=== PATIENT | female | born 1985 | race Caucasian/White ===

== ENCOUNTER 2017-10-29 11:08 | Emergency (ER) | payer MEDICARE, MEDICAID ==
[~2017-10-29] VITALS: Ht 152.4 cm; Wt 63.0 kg
[~2017-10-29 11:08] MED LIST: AMOX500C7 PO; CLON-527 PO; FLUO20CA39 PO; GABA-341 PO; HYDR-569 PO; ONDA8TAB9 PO
[2017-10-29] MEDS ORDERED: famotidine/PF 10 mg/ml inj IV ONE (13:30)
[2017-10-29] MEDS ORDERED: ondansetron/PF 4mg/2ml inj IV ONE (13:30)
[2017-10-29] MEDS ORDERED: normal saline 1000ML IV soln IVB ONE ×2 (13:30)
[2017-10-29 14:05] LABS: BASOPHILS % (AUTO) 0.1 % (0-1); EOSINOPHILS # (AUTO) 0.1 X10'3 (0-0.9); EOSINOPHILS % (AUTO) 1.7 % (0-6); HEMATOCRIT 38.8 % (35.0-45.0); HEMOGLOBIN 13.5 g/dl (12.0-16.0); LYMPHOCYTES # (AUTO) 2.2 X10'3 (1.1-4.8); LYMPHOCYTES % (AUTO) 37.1 % (21-51); MEAN CORPUSCULAR HEMOGLOBIN 32.7 PG (27.0-31.0); MEAN CORPUSCULAR HGB CONC 34.7 % (33.0-36.5); MEAN CORPUSCULAR VOLUME 94.3 FL (78-98); MEAN PLATELET VOLUME 7.6 FL (7.4-10.4); MONOCYTES # (AUTO) 0.4 X10'3 (0-0.9); MONOCYTES % (AUTO) 6.2 % (2-12); NEUTROPHILS # (AUTO) 3.2 X10'3 (1.8-7.7); NEUTROPHILS % (AUTO) 54.9 % (42-75); PLATELET COUNT 244 X10'3 (140-440); RED BLOOD COUNT 4.12 X10'6 (4.20-5.60); WHITE BLOOD COUNT 5.8 X10'3 (4.5-11.0)
[2017-10-29 14:07] LABS: CLARITY,URINE CLEAR (Clear); COLOR,URINE YELLOW (Yellow); GLUCOSE, URINE NEGATIVE (Neg); KETONES,URINE TRACE mg/dl (Neg); LEUKOCYTE ESTERASE ,URINE NEGATIVE (Neg); NITRITES, URINE NEGATIVE (Neg); OCCULT BLOOD,URINE MODERATE (Neg); PROTEIN,URINE TRACE mg/dl (Neg)
[2017-10-29 14:08] LABS: UA COLLECTION TYPE CLN CATCH MIDSTREAM
[2017-10-29 14:11] LABS: HCG SERUM QL NEGATIVE
[2017-10-29 14:14] LABS: ALANINE AMINOTRANSFERASE 22 U/L (12-78); ALBUMIN 3.8 G/DL (3.4-5.0); ALBUMIN/GLOBULIN RATIO 1.3 (1.1-1.5); ALKALINE PHOSPHATASE 81 IU/L (46-116); ANION GAP 11 (8-16); ASPARTATE AMINO TRANSFERASE 16 U/L (10-37); BILIRUBIN,TOTAL 0.7 MG/DL (0.1-1.0); BLOOD UREA NITROGEN 9 MG/DL (7-18); BUN/CREATININE RATIO 13.8 (6.6-38.0); CALCIUM 8.5 MG/DL (8.5-10.1); CHLORIDE 107 MMOL/L (99-107); CREATININE 0.65 MG/DL (0.40-0.90); GLUCOSE 94 MG/DL (70-104); LIPASE < 50 U/L (73-393); POTASSIUM 3.4 MMOL/L (3.5-5.1); SODIUM 143 MMOL/L (135-145); TOTAL CARBON DIOXIDE 25.2 MMOL/L (24-32); TOTAL PROTEIN 6.7 G/DL (6.4-8.2); eGFR > 90 ML/MIN
[2017-10-29 14:16] LABS: BACTERIA,URINE FEW /HPF (Neg); SQUAMOUS EPITHELIAL CELL,UR FEW /LPF (FEW); WBC,URINE 0-4 /HPF (0-4)
[2017-10-29 14:17] LABS: CAL OXALATE CRYSTALS FEW /HPF (NEGATIVE)
[2017-10-29] MEDS ORDERED: dicyclomine 10mg/ml 2ml ampule IM ONE (14:30)
[2017-10-29] MEDS ORDERED: iohexol 300mg/ml 100ml inj. ONE (15:18)
[2017-10-29] MEDS ORDERED: HYDR25SU32 RC (16:44)
[2017-10-29 17:05] VITALS: BP 98/66
== END 2017-10-29 17:08 | disposition home or self-care (01) ==
LOC: ER 11:09
DX: K56.7 Ileus, unspecified (principal); K83.9 Disease of biliary tract, unspecified; F17.200 Nicotine dependence, unspecified, uncomplicated; Z88.2 Allergy status to sulfonamides; Z79.899 Other long term (current) drug therapy
CPT/HCPCS: 36415; 74021; 74176; 80053; 81001; 83690; 84703; 85025; 96361; 96372; 96374; 96375; 99285; J0500; J2405; J3490; J7030; Q9967

== ENCOUNTER 2018-11-14 11:39 | Emergency (ER) | payer MEDICARE, MEDICAID ==
[~2018-11-14] VITALS: Ht 167.6 cm; Wt 54.5 kg
[~2018-11-14 11:39] MED LIST changes: +DIFL500T PO; +HYDR-4383 PO; -HYDR-569 PO; +HYDR25SU32 RC
[2018-11-14 12:12] LABS: URINE HCG NEGATIVE (NEG)
[2018-11-14 12:14] LABS: BASOPHILS % (AUTO) 0.2 % (0-1); EOSINOPHILS # (AUTO) 0.1 X10'3 (0-0.9); EOSINOPHILS % (AUTO) 0.8 % (0-6); HEMATOCRIT 43.9 % (35.0-45.0); HEMOGLOBIN 15.2 g/dl (12.0-16.0); LYMPHOCYTES # (AUTO) 2.6 X10'3 (1.1-4.8); MEAN CORPUSCULAR HEMOGLOBIN 35.9 PG (27.0-31.0); MEAN CORPUSCULAR HGB CONC 34.7 g/dL (33.0-36.5); MEAN CORPUSCULAR VOLUME 103.6 FL (78-98); MEAN PLATELET VOLUME 7.2 FL (7.4-10.4); MONOCYTES # (AUTO) 0.8 X10'3 (0-0.9); MONOCYTES % (AUTO) 6.7 % (2-12); NEUTROPHILS % (AUTO) 71.3 % (42-75); PLATELET COUNT 381 X10'3 (140-440); RED BLOOD COUNT 4.24 X10'6 (4.20-5.60); RED CELL DISTRIBUTION WIDTH 13.1 % (11.5-14.5); WHITE BLOOD COUNT 12.6 X10'3 (4.5-11.0)
[2018-11-14 12:19] LABS: CLARITY,URINE CLEAR (Clear); COLOR,URINE YELLOW (Yellow); GLUCOSE, URINE NEGATIVE (Neg); KETONES,URINE NEGATIVE (Neg); LEUKOCYTE ESTERASE ,URINE MODERATE (Neg); NITRITES, URINE NEGATIVE (Neg); OCCULT BLOOD,URINE SMALL (Neg); PH,URINE 6.5 (4.8-8.0); PROTEIN,URINE NEGATIVE (Neg); UROBILINOGEN,URINE 0.2 E.U/dL (0.2-1.0)
[2018-11-14 12:23] LABS: UA COLLECTION TYPE CLN CATCH MIDSTREAM
[2018-11-14 12:24] LABS: BACTERIA,URINE FEW /HPF (Neg); MUCUS STRANDS FEW /LPF (Neg); SQUAMOUS EPITHELIAL CELL,UR FEW /LPF (FEW); WBC,URINE 30-50 /HPF (0-4)
[2018-11-14] MEDS ORDERED: ketorolac trometh. 30mg/ml inj. IV ONE (12:30)
[2018-11-14] MEDS ORDERED: morphine 2 MG/ML inj. syringe IV ONE (12:30)
[2018-11-14 12:34] LABS: ALANINE AMINOTRANSFERASE 36 U/L (12-78); ALBUMIN/GLOBULIN RATIO 1.2 (1.1-1.5); ALKALINE PHOSPHATASE 84 IU/L (46-116); AMYLASE 64 U/L (25-115); ANION GAP 9 (8-16); ASPARTATE AMINO TRANSFERASE 18 U/L (10-37); BILIRUBIN,TOTAL 0.6 MG/DL (0.1-1.0); BLOOD UREA NITROGEN 14 MG/DL (7-18); BUN/CREATININE RATIO 17.9 (6.6-38.0); CALCIUM 9.1 MG/DL (8.5-10.1); CHLORIDE 100 MMOL/L (99-107); CREATININE 0.78 MG/DL (0.40-0.90); GLUCOSE 88 MG/DL (70-104); LIPASE 869 U/L (73-393); POTASSIUM 3.5 MMOL/L (3.5-5.1); SODIUM 137 MMOL/L (135-145); TOTAL CARBON DIOXIDE 28.3 MMOL/L (24-32); TOTAL PROTEIN 7.3 G/DL (6.4-8.2); eGFR 86 ML/MIN
[2018-11-14] MEDS ORDERED: normal saline 1000ml 1,000 ML IV ONE (13:15)
[2018-11-14] MEDS ORDERED: NITR100C6 PO (14:35)
[2018-11-14] MEDS ORDERED: PHEN-716 PO (14:35)
[2018-11-14 14:45] VITALS: BP 116/83
[2018-11-17] MEDS ORDERED: LEVO500T89 PO (03:17)
== END 2018-11-14 15:01 | disposition home or self-care (01) ==
LOC: ER 11:39
DX: K85.90 Acute pancreatitis without necrosis or infection, unspecified (principal); D53.9 Nutritional anemia, unspecified; G89.29 Other chronic pain; Z88.2 Allergy status to sulfonamides; Z79.899 Other long term (current) drug therapy
CPT/HCPCS: 36415; 80053; 81001; 81025; 82150; 83690; 85025; 87088; 96374; 96375; 99283; J1885; J2270; J7030

== ENCOUNTER 2019-11-23 15:02 | Emergency (ER) | payer MEDICARE, MEDICAID ==
[~2019-11-23] VITALS: Ht 162.6 cm; Wt 59.1 kg
[~2019-11-23 15:02] MED LIST changes: -AMOX500C7 PO; -CLON-527 PO; -DIFL500T PO; -FLUO20CA39 PO; -GABA-341 PO; -HYDR-4383 PO; -HYDR25SU32 RC; +NO HOME MEDS; -ONDA8TAB9 PO
--- NOTE | 2019-11-23 15:14 | NUR ---
DR PEREZ MADE AWARE OF PATIENT STATUS, ALL QUESTIONS AND CONCERNS ADDRESSED, NO NEW ORDERS AT THIS TIME.
[2019-11-23] MEDS ORDERED: normal saline 1000ML IV soln IVB ONE (15:20)
[2019-11-23 15:40] LABS: BASOPHILS # (AUTO) 0.1 X10'3 (0-0.2); BASOPHILS % (AUTO) 0.8 % (0-1); EOSINOPHILS # (AUTO) 0.2 X10'3 (0-0.9); EOSINOPHILS % (AUTO) 2.4 % (0-6); HEMATOCRIT 39.7 % (35.0-45.0); HEMOGLOBIN 13.6 g/dl (12.0-16.0); LYMPHOCYTES % (AUTO) 30.1 % (21-51); MEAN CORPUSCULAR HEMOGLOBIN 34.8 PG (27.0-31.0); MEAN CORPUSCULAR HGB CONC 34.2 g/dL (33.0-36.5); MEAN CORPUSCULAR VOLUME 101.6 FL (78-98); MEAN PLATELET VOLUME 7.2 FL (7.4-10.4); MONOCYTES # (AUTO) 0.5 X10'3 (0-0.9); MONOCYTES % (AUTO) 7.1 % (2-12); NEUTROPHILS % (AUTO) 59.6 % (42-75); PLATELET COUNT 312 X10'3 (140-440); RED BLOOD COUNT 3.91 X10'6 (4.20-5.60); RED CELL DISTRIBUTION WIDTH 13.4 % (11.5-14.5); WHITE BLOOD COUNT 6.7 X10'3 (4.5-11.0)
[2019-11-23 15:54] LABS: ALANINE AMINOTRANSFERASE 27 U/L (12-78); ALBUMIN 3.5 G/DL (3.4-5.0); ALBUMIN/GLOBULIN RATIO 0.9 (1.1-1.5); ALKALINE PHOSPHATASE 101 IU/L (46-116); ANION GAP 5 (8-16); ASPARTATE AMINO TRANSFERASE 21 U/L (10-37); BILIRUBIN,TOTAL 0.3 MG/DL (0.1-1.0); BLOOD UREA NITROGEN 9 MG/DL (7-18); BUN/CREATININE RATIO 10.8 (6.6-38.0); CALCIUM 8.7 MG/DL (8.5-10.1); CHLORIDE 106 MMOL/L (99-107); CREATININE 0.83 MG/DL (0.40-0.90); ETHANOL < 0.010 GM/DL (0.0-0.010); GLUCOSE 104 MG/DL (70-104); POTASSIUM 4.5 MMOL/L (3.5-5.1); SODIUM 142 MMOL/L (135-145); TOTAL CARBON DIOXIDE 31.3 MMOL/L (24-32); TOTAL PROTEIN 7.2 G/DL (6.4-8.2); eGFR 80 ML/MIN
[2019-11-23 15:58] LABS: HCG SERUM QL NEGATIVE
[2019-11-23 16:08] LABS: URINE AMPHETAMINE SCREEN NEGATIVE (Neg); URINE BARBITUATE SCREEN NEGATIVE (Neg); URINE BENZODIAZEPINES SCREEN NEGATIVE (Neg); URINE CANNABINOID SCREEN POSITIVE (Neg); URINE COCAINE SCREEN POSITIVE (Neg); URINE METHADONE SCREEN NEGATIVE (Neg); URINE OPIATE SCREEN NEGATIVE (Neg); URINE PHENCYCLIDINE SCREEN NEGATIVE (Neg)
--- NOTE | 2019-11-23 16:15 | NUR ---
TO CT AT THIS TIME.
[2019-11-23 16:52] VITALS: BP 116/82
== END 2019-11-23 16:53 | disposition home or self-care (01) ==
LOC: ER 15:02
DX: R56.9 Unspecified convulsions (principal); G89.29 Other chronic pain; F41.9 Anxiety disorder, unspecified; F31.9 Bipolar disorder, unspecified; F12.90 Cannabis use, unspecified, uncomplicated; F17.200 Nicotine dependence, unspecified, uncomplicated; Z98.890 Other specified postprocedural states; Z88.2 Allergy status to sulfonamides
CPT/HCPCS: 36415; 70450; 80053; 80305; 80320; 84703; 85025; 99284; J7030

== ENCOUNTER 2020-03-13 16:02 | Emergency (ER) | payer MEDICARE, MEDICAID ==
[~2020-03-13] VITALS: Ht 167.6 cm; Wt 54.9 kg
[2020-03-13 16:09] VITALS: BP 110/65
[2020-03-13] MEDS ORDERED: TETanus/Pertussis (Acell)/Diphther VAC/PF (Tdap-Adult) 0.5ml syringe IMVAC ONE (17:00)
[2020-03-13] MEDS ORDERED: CEPH250T PO (17:04)
[2020-03-13] MEDS ORDERED: HYDROcodone/acetaminophen 5mg/325mg tablet PO ONE (17:05)
== END 2020-03-13 17:41 | disposition home or self-care (01) ==
LOC: ER 16:02
DX: T63.301A Toxic effect of unspecified spider venom, accidental (unintentional), initial encounter (principal); L02.413 Cutaneous abscess of right upper limb; F41.9 Anxiety disorder, unspecified; F32.9 Major depressive disorder, single episode, unspecified; G89.29 Other chronic pain; F12.90 Cannabis use, unspecified, uncomplicated; Z72.89 Other problems related to lifestyle; Z88.2 Allergy status to sulfonamides; Z79.899 Other long term (current) drug therapy; Y92.89 Other specified places as the place of occurrence of the external cause
CPT/HCPCS: 10060; 90471; 90715; 99283

== ENCOUNTER 2020-06-23 07:41 | Emergency (ER) | payer MEDICARE, MEDICAID ==
[~2020-06-23] VITALS: Ht 165.1 cm; Wt 53.1 kg
[2020-06-23 07:43] VITALS: BP 106/71
[2020-06-23] MEDS ORDERED: azithromycin 250mg tablet PO ONE (09:05)
[2020-06-23] MEDS ORDERED: CefTRIAXone 250MG IM Kit w/LIDOcaine IM ONE (09:05)
[2020-06-23 09:35] LABS: URINE HCG NEGATIVE (NEG)
[2020-06-23 09:37] LABS: CLARITY,URINE SLIGHTLY CLOUDY (Clear); COLOR,URINE YELLOW (Yellow); GLUCOSE, URINE NEGATIVE (Neg); KETONES,URINE NEGATIVE (Neg); LEUKOCYTE ESTERASE ,URINE NEGATIVE (Neg); NITRITES, URINE NEGATIVE (Neg); OCCULT BLOOD,URINE TRACE-INTACT (Neg); PROTEIN,URINE NEGATIVE (Neg); UROBILINOGEN,URINE 0.2 E.U/dL (0.2-1.0)
[2020-06-23 09:41] LABS: UA COLLECTION TYPE CLN CATCH MIDSTREAM; URINE AMPHETAMINE SCREEN POSITIVE (Neg); URINE BARBITUATE SCREEN NEGATIVE (Neg); URINE BENZODIAZEPINES SCREEN NEGATIVE (Neg); URINE CANNABINOID SCREEN POSITIVE (Neg); URINE COCAINE SCREEN NEGATIVE (Neg); URINE METHADONE SCREEN NEGATIVE (Neg); URINE OPIATE SCREEN NEGATIVE (Neg); URINE PHENCYCLIDINE SCREEN NEGATIVE (Neg)
[2020-06-23 09:43] LABS: BACTERIA,URINE FEW /HPF (Neg); MUCUS STRANDS MODERATE /LPF (Neg); SQUAMOUS EPITHELIAL CELL,UR MODERATE /LPF (FEW)
[2020-06-23 09:44] LABS: WBC,URINE 0-4 /HPF (0-4)
[2020-06-23 10:43] LABS: BASOPHILS % (AUTO) 0.4 % (0-1); EOSINOPHILS # (AUTO) 0.1 X10'3 (0-0.9); EOSINOPHILS % (AUTO) 1.4 % (0-6); HEMATOCRIT 41.1 % (35.0-45.0); HEMOGLOBIN 13.9 g/dl (12.0-16.0); LYMPHOCYTES # (AUTO) 1.6 X10'3 (1.1-4.8); LYMPHOCYTES % (AUTO) 28.5 % (21-51); MEAN CORPUSCULAR HEMOGLOBIN 33.5 PG (27.0-31.0); MEAN CORPUSCULAR HGB CONC 33.8 g/dL (33.0-36.5); MEAN CORPUSCULAR VOLUME 99.3 FL (78-98); MEAN PLATELET VOLUME 7.6 FL (7.4-10.4); MONOCYTES # (AUTO) 0.5 X10'3 (0-0.9); MONOCYTES % (AUTO) 9.1 % (2-12); NEUTROPHILS # (AUTO) 3.5 X10'3 (1.8-7.7); NEUTROPHILS % (AUTO) 60.6 % (42-75); PLATELET COUNT 348 X10'3 (140-440); RED BLOOD COUNT 4.14 X10'6 (4.20-5.60); RED CELL DISTRIBUTION WIDTH 12.9 % (11.5-14.5); WHITE BLOOD COUNT 5.7 X10'3 (4.5-11.0)
[2020-06-23] MEDS ORDERED: penicillin G benzathine 1.2 million unit/2ml syringe IM ONE (11:05)
[2020-06-23] MEDS ORDERED: LACT1CAP65 PO (11:08)
[2020-06-23] MEDS ORDERED: METR500T PO (11:08)
== END 2020-06-23 11:30 | disposition home or self-care (01) ==
LOC: ER 07:42
DX: Z20.2 Contact with and (suspected) exposure to infections with a predominantly sexual mode of transmission (principal); B96.89 Other specified bacterial agents as the cause of diseases classified elsewhere; F15.10 Other stimulant abuse, uncomplicated; N76.0 Acute vaginitis; R11.2 Nausea with vomiting, unspecified; R53.1 Weakness; G89.29 Other chronic pain; F41.9 Anxiety disorder, unspecified; F32.9 Major depressive disorder, single episode, unspecified; F17.201 Nicotine dependence, unspecified, in remission; F12.90 Cannabis use, unspecified, uncomplicated; F14.90 Cocaine use, unspecified, uncomplicated; Z98.890 Other specified postprocedural states; Z72.89 Other problems related to lifestyle; Z88.2 Allergy status to sulfonamides; Z79.2 Long term (current) use of antibiotics; Z79.899 Other long term (current) drug therapy
CPT/HCPCS: 36415; 80305; 81001; 81025; 85025; 86592; 87210; 87491; 87591; 96372; 99284; J0561; J0696; Q0112